=== PATIENT | female | born 1940 | race Caucasian/White ===

== ENCOUNTER 2020-01-04 11:20 | Emergency (ER) | payer BC, OTHER ==
[2020-01-04 11:37] VITALS: TEMP 98.4; BMI 24.5
--- NOTE | 2020-01-04 11:48 | PDOC ---
History of Present Illness - General Chief Complaint: Pain, Acute Stated Complaint: INDIGESTION Time Seen by Provider: 01/04/20 11:48 - History of Present Illness Initial Comments: 01/04/20 15:54 Chief complaint: Indigestion HPI: Patient complains of burning epigastric discomfort with a feeling of "indigestion" since this morning. She has had reflux symptoms, with belching and acid fluid regurgitating into the throat and causing pain in both sides of the neck. She has chronic pain in her left arm, which is unchanged, and there seems to be no new radiating pain to the shoulders or arms with her current symptoms. There is no diaphoresis, shortness of breath, lightheadedness or dizziness. Similar symptoms in the past attributed to GERD, maintained on Nexium, but symptoms today were worse Review of systems: As noted above. In addition, no URI symptoms, sore throat, cough, shortness of breath, hematemesis, melena, bloody stool, vomiting or diarrhea, urinary tract symptoms, vaginal bleeding or discharge. Past medical history: Atrial fibrillation many years ago controlled on digoxin and in remission. Previously on Eliquis but did not tolerate. Now is on only aspirin at bedtime.. GERD usually controlled on Nexium. Social history: No tobacco alcohol or nonprescription drugs. Fully active and without disability Family history: Reviewed and noncontributory including early coronary artery disease, metabolic disease including diabetes, and cancer Physical exam: Alert and oriented well-developed well-nourished mild distress due to "indigestion" but cheerful and cooperative Afebrile, vital signs normal except for significantly elevated blood pressure of 200/100. She is has had transient elevated blood pressure in the past but is maintained on no blood pressure medication. She checks her blood pressure at home and in the last few weeks it has been in the 160-170 range, which is higher than usual. PERRLA, fundi benign, ENT clear Neck supple without bruit mass or nodes Chest clear with full breath sounds bilaterally, no wheezes rales or rhonchi CV S1-S2 normal without murmur rub or gallop pulses full and symmetric no JVD or edema no bruits. Heart rate is irregularly irregular at 80 bpm. The patient is unaware of any palpitations Abdomen soft nontender without mass organomegaly. Bowel sounds normal. Nondistended no CVAT Extremities no CCE Skin clear, no rash, adequate turgor and wet mucous membranes Neurological intact Impression: Severe episode of GERD, rule out atypical symptoms of acute coronary syndrome. Plan: EKG and enzymes, CBC and chemistries, symptomatic treatment and observation. Further evaluation depending on results. 01/04/20 16:02 01/04/20 16:05 Past History - Past Medical History Allergies/Adverse Reactions: Allergies Allergy/AdvReac Type Severity Reaction Status Date / Time hyaluronate sodium Allergy Verified 01/04/20 11:22 [From Supartz] Home Medications: Ambulatory Orders Ascorbic Acid/Vitamin E/Biotin [Hair Skin Nails-Biotin Gummies] 1 each PO DAILY 09/01/14 Aspirin/Acetaminophen/Froy Carb [Excedrin Back & Body Caplet] 1 each PO HS Digoxin [Lanoxin] 125 mcg PO HS 09/01/14 Sertraline HCl 50 mg PO DAILY 01/04/20 Cardiac Disorders: Yes (AFIB) COPD: No Psychiatric Problems: Yes (DEPRESSION/ANXIETY) - Surgical History Abdominal Surgery: Yes Cholecystectomy: Yes - Psycho Social/Smoking Cessation Hx Smoking History: Never smoked Have you smoked in the past 12 months: No Hx Alcohol Use: No Drug/Substance Use Hx: No *Physical Exam - Vital Signs Last Vital Signs Temp Pulse Resp BP Pulse Ox 98.4 F 70 16 112/95 100 01/04/20 11:21 01/04/20 17:16 01/04/20 17:16 01/04/20 17:16 01/04/20 17:16 ED Treatment Course - LABORATORY CBC & Chemistry Diagram: 01/04/20 11:55 01/04/20 11:55 - ADDITIONAL ORDERS Additional order review: Laboratory Results 01/04/20 01/04/20 01/04/20 15:50 15:50 11:55 Sodium Potassium Chloride Carbon Dioxide Anion Gap BUN Creatinine Est GFR (CKD-EPI)AfAm Est GFR (CKD-EPI)NonAf Random Glucose Calcium Total Bilirubin AST ALT Alkaline Phosphatase Creatine Kinase 70 Troponin I < 0.03 Total Protein Albumin Lipase Digoxin 0.57 L 01/04/20 01/04/20 01/04/20 11:55 11:55 11:55 Sodium 139 Potassium 3.7 Chloride 108 H Carbon Dioxide 23 Anion Gap 8 BUN 17.0 Creatinine 0.6 Est GFR (CKD-EPI)AfAm 101.18 Est GFR (CKD-EPI)NonAf 87.30 Random Glucose 101 Calcium 8.6 Total Bilirubin 0.3 AST 20 ALT 21 Alkaline Phosphatase 59 Creatine Kinase 76 Troponin I < 0.03 Total Protein 6.6 Albumin 3.8 Lipase 137 Digoxin 01/04/20 11:55 RBC 5.58 H MCV 76.3 L MCHC 32.2 RDW 15.0 MPV 8.9 Neutrophils % 65.2 Lymphocytes % 24.2 Monocytes % 6.6 Eosinophils % 3.2 Basophils % 0.8 - RADIOLOGY Radiology Studies Ordered: Category Date Time Status CHEST X-RAY PORTABLE* [RAD] Stat Radiology 01/04/20 11:49 Completed - Medications Given in the ED: ED Medications Discontinued Medications Generic Name Dose Route Start Last Admin Trade Name Freq PRN Reason Stop Dose Admin Al Hydroxide/Mg Hydroxide 30 ml 01/04/20 12:43 01/04/20 12:49 Mylanta Oral Suspension - PO 01/04/20 12:44 30 ml ONCE ONE Administration Famotidine/Sodium Chloride 20 mg in 50 mls @ 100 mls/hr 01/04/20 11:49 11:59 Pepcid 20 Mg Premixed Ivpb - IVPB 01/04/20 12:18 100 mls/hr ONCE ONE Administration Medical Decision Making - Medical Decision Making 01/04/20 12:18 EKG shows normal sinus rhythm with occasional PACs. Normal axis and intervals no ST-T wave changes. Except for the occasional PACs, it is a normal EKG. 01/04/20 15:17 Initial EKG and labs negative. Repeat pending. Patient now asymptomatic. Pain has resolved. Clinically and hemodynamically stable. Blood pressure 178/96. 01/04/20 16:04 01/04/20 16:52 Repeat enzymes and EKG are unchanged. Blood pressure has improved. Discharged with follow-up 24 hours primary physician to monitor blood pressure and reevaluate. Return to ER if severe chest pain recurs. Continue Nexium. Avoid eating 3 to 4 hours before bed. Fully ambulatory and in no pain at discharge to follow-up as directed 01/04/20 17:27 Discharge - Discharge Information Problems reviewed: Yes Clinical Impression/Diagnosis: Chest pain due to GERD Condition: Stable - Admission No - Follow up/Referral - Patient Discharge Instructions Patient Printed Discharge Instructions: DI for Gastroesophageal Reflux Disease (GERD) Additional Instructions: Watch her diet closely. Avoid fatty foods, rich foods, and spicy foods. Eat smaller meals. Do not eat within 3 to 4 hours of going to sleep Continue taking your Nexium as directed. Return to hospital if severe pain returns. Otherwise follow-up with primary physician in 24 hours for blood pressure rechecked evaluated for the need for blood pressure medication. - Post Discharge Activity
[2020-01-04] MEDS ORDERED: FAMOTIDINE 20 MG/50 ML IVPB 20 MG/50 ML MG IVPB ONE ×2 (11:49→11:57)
[2020-01-04 12:07] LABS: BASO % 0.8 % (0-2.0); EOS % 3.2 % (0-4.5); HEMATOCRIT 42.6 % (32.4-45.2); HEMOGLOBIN 13.7 GM/dl (10.7-15.3); LYMPH % 24.2 % (8-40); MCH 24.6 pg (25.7-33.7); MCHC 32.2 g/dl (32.0-36.0); MEAN CELL VOLUME 76.3 fl (80-96); MEAN PLT VOLUME 8.9 fl (7.5-11.1); MONO % 6.6 % (3.8-10.2); NEUT % 65.2 % (42.8-82.8); PLATELET COUNT 230 K/MM3 (134-434); RBC 5.58 M/mm3 (3.60-5.2); WHITE BLOOD COUNT 6.1 K/mm3 (4.0-10.8)
[2020-01-04 12:15] LABS: ALBUMIN 3.8 g/dl (3.4-5.0); BILIRUBIN,TOTAL 0.3 mg/dl (0.2-1); CALCIUM 8.6 mg/dl (8.5-10); CREATININE 0.6 mg/dl (0.55-1.3); POTASSIUM 3.7 mmol/L (3.5-5.1); TOT PROT 6.6 g/dl (6.4-8.2)
[2020-01-04] MEDS ORDERED: MAG HYDROX/AL HYDROX/SIMETH 30 ML UNIT-DOSE CUP PO ONE (12:43)
[2020-01-04] MEDS ORDERED: MAG HYDROX/AL HYDROX/SIMETH 30 ML UNIT-DOSE CUP ONE (12:46)
[2020-01-04 17:17] VITALS: BP 112/95; PULSE 70
--- NOTE | 2020-01-05 14:29 | EKG ---
Test Reason : Blood Pressure : / mmHG Vent. Rate : 070 BPM Atrial Rate : 070 BPM P-R Int : 136 ms QRS Dur : 080 ms QT Int : 374 ms P-R-T Axes : 063 004 042 degrees QTc Int : 403 ms SINUS RHYTHM WITH PREMATURE ATRIAL COMPLEXES INFERIOR INFARCT , AGE UNDETERMINED ABNORMAL ECG WHEN COMPARED WITH ECG OF 04-JAN-2020 11:28, INFERIOR INFARCT IS NOW PRESENT Confirmed by ONELIA SINGH, JULISSA ([id number]) on 01/05/2020 2:28:45 PM Referred By: MD SANCHEZ Confirmed By:JULISSA ROUSSEAU MD
--- NOTE | 2020-01-05 14:29 | EKG ---
Test Reason : Blood Pressure : / mmHG Vent. Rate : 081 BPM Atrial Rate : 081 BPM P-R Int : 130 ms QRS Dur : 082 ms QT Int : 366 ms P-R-T Axes : 080 029 044 degrees QTc Int : 425 ms SINUS RHYTHM WITH PREMATURE SUPRAVENTRICULAR COMPLEXES OTHERWISE NORMAL ECG WHEN COMPARED WITH ECG OF 20-OCT-2016 13:31, PREMATURE SUPRAVENTRICULAR COMPLEXES ARE NOW PRESENT Confirmed by ONELIA SINGH, JULISSA ([id number]) on 01/05/2020 2:29:04 PM Referred By: GENEVIEVE SANCHEZ Confirmed By:JULISSA ROUSSEAU MD
== END 2020-01-04 17:33 | disposition home or self-care (01) ==
LOC: FER 11:20
PROC: 3E033GC Introduction of Other Therapeutic Substance into Peripheral Vein, Percutaneous Approach (ICD-10-PCS; principal; 2020-01-04)
DX: R07.89 Other chest pain (principal); K21.9 Gastro-esophageal reflux disease without esophagitis; Z88.8 Allergy status to other drugs, medicaments and biological substances; F41.8 Other specified anxiety disorders; I48.91 Unspecified atrial fibrillation
CPT/HCPCS: 36415; 71045-TC-FY; 80053; 80162; 82550; 83690; 84484; 85025; 93005; 99283-25

== ENCOUNTER 2021-04-30 10:09 | Emergency (ER) | payer OTHER ==
[2021-04-30 10:26] VITALS: BP 157/100; PULSE 87; TEMP 98.9; BMI 23.1
== END 2021-04-30 12:38 | disposition home or self-care (01) ==
LOC: FER 10:09
DX: M25.562 Pain in left knee (principal); M25.571 Pain in right ankle and joints of right foot
CPT/HCPCS: 73564-TC-LT-FY; 73610-TC-RT-FY; 99284-25

== ENCOUNTER 2021-05-20 15:08 | Emergency (ER) | payer OTHER ==
[2021-05-20 15:16] VITALS: BP 185/91; PULSE 75; TEMP 99.5; BMI 24.5
[2021-05-20] MEDS ORDERED: ACETAMINOPHEN 500 MG TABLET (FP) PO ONE (15:23)
[2021-05-20] MEDS ORDERED: ACETAMINOPHEN 325 MG TABLET (FP) ONE (15:50)
== END 2021-05-20 17:02 | disposition home or self-care (01) ==
LOC: FER 15:08
DX: M25.552 Pain in left hip (principal)
CPT/HCPCS: 73523-TC-FY; 99283-25

== ENCOUNTER 2021-11-30 16:00 | Emergency (ER) | payer OTHER ==
[2021-11-30 16:14] VITALS: BP 151/75; PULSE 75; TEMP 98.1; BMI 24.5
[2021-11-30] MEDS ORDERED: DIPHTH,PERTUSS(ACELL),TET 0.5 ML DISP.SYRIN IM ONE ×2 (16:38→16:44)
== END 2021-11-30 19:12 | disposition home or self-care (01) ==
LOC: FER 16:00
PROC: 3E0234Z Introduction of Serum, Toxoid and Vaccine into Muscle, Percutaneous Approach (ICD-10-PCS; principal; 2021-11-30)
DX: S02.2XXA Fracture of nasal bones, initial encounter for closed fracture (principal); W01.0XXA Fall on same level from slipping, tripping and stumbling without subsequent striking against object, initial encounter
CPT/HCPCS: 70450-TC; 70486-TC; 72125-TC; 90471; 90715; 99285-25

== ENCOUNTER 2022-02-24 17:30 | Emergency (ER) | payer OTHER ==
[2022-02-24 17:59] VITALS: BP 185/88; PULSE 95; TEMP 98.9; BMI 24.5
[2022-02-24] MEDS ORDERED: DIPHTH,PERTUSS(ACELL),TET 0.5 ML DISP.SYRIN IM ONE ×2 (18:14→18:19)
== END 2022-02-24 18:44 | disposition home or self-care (01) ==
LOC: FER 17:30
PROC: 3E0234Z Introduction of Serum, Toxoid and Vaccine into Muscle, Percutaneous Approach (ICD-10-PCS; principal; 2022-02-24)
DX: I10 Essential (primary) hypertension (principal); Z23 Encounter for immunization
CPT/HCPCS: 90471; 90715; 99284-25

== ENCOUNTER 2024-08-16 19:03 | Emergency (ER) | payer OTHER ==
[2024-08-16 19:09] VITALS: BP 189/78; PULSE 107; RESP 20; TEMP 99.4; BMI 22.7
[2024-08-16] MEDS ORDERED: ACETAMINOPHEN INJECTION 100 ML ONE (19:51)
[2024-08-16 20:16] LABS: BASO % 0.3 % (0-2.0); HEMATOCRIT 42.5 % (32.4-45.2); HEMOGLOBIN 13.6 GM/dL (10.7-15.3); LYMPH % 7.7 % (8-40); MCH 24.9 pg (25.7-33.7); MCHC 31.9 g/dl (32.0-36.0); MEAN CELL VOLUME 78.1 fl (80-96); MEAN PLT VOLUME 8.1 fl (7.5-11.1); PLATELET COUNT 217 10^3/uL (134-434); RBC 5.44 M/mm3 (3.60-5.2); RDW 15.3 % (11.6-15.6); WHITE BLOOD COUNT 8.7 K/mm3 (4.0-10.0)
[2024-08-16] MEDS ORDERED: ONDANSETRON 4 MG/2 ML VIAL ONE (20:16)
[2024-08-16 20:22] LABS: INR 1.03 (0.83-1.09); PROTHROMBIN TIME (PATIENT) 11.6 SEC (9.7-13.0)
[2024-08-16 20:36] LABS: POTASSIUM 4.6 mmol/L (3.5-5.1)
[2024-08-16 20:39] LABS: ALBUMIN 3.9 g/dl (3.4-5.0); BLOOD UREA NITROGEN 25.3 mg/dL (7-18); CALCIUM 9.4 mg/dL (8.5-10.1); MAGNESIUM 2.4 mg/dL (1.8-2.4)
[2024-08-16 20:42] LABS: CREATININE 0.8 mg/dL (0.55-1.3)
[2024-08-16 20:44] LABS: BILIRUBIN,TOTAL 0.3 mg/dL (0.2-1)
[2024-08-16] MEDS: ONDANSETRON 4 MG/2 ML VIAL IVPUSH ONE (21:10)
[2024-08-16] MEDS: ACETAMINOPHEN 1000 MG/100 ML BAG IVPB ONE (21:10)
[2024-08-16 21:33] LABS: HIV INTERPRETATION NEGATIVE (NEGATIVE)
[2024-08-16] MEDS: SODIUM CHLORIDE 0.9% 500 ML INFUS.BAG IV ONE (22:02)
== END 2024-08-16 22:28 | disposition home or self-care (01) ==
LOC: JER 19:03
PROC: 3E033NZ Introduction of Analgesics, Hypnotics, Sedatives into Peripheral Vein, Percutaneous Approach (ICD-10-PCS; principal; 2024-08-16)
PROC: 3E033GC Introduction of Other Therapeutic Substance into Peripheral Vein, Percutaneous Approach (ICD-10-PCS; 2024-08-16)
DX: U07.1 COVID-19 (principal); M79.10 Myalgia, unspecified site; R51.9 Headache, unspecified; R53.1 Weakness
CPT/HCPCS: 0241U-QW; 36415; 80053; 82550; 83735; 84484; 85025; 85610; 86803; 86850; 86900; 86901; 87040; 87389; 93005; 93010; 96374; 96375; 99284-25; J0131

== ENCOUNTER 2024-08-19 18:20 | Inpatient (IN) | payer OTHER ==
[2024-08-19 21:20] LABS: BASO % 0.6 % (0-2.0); EOS % 0.6 % (0-4.5); HEMATOCRIT 42.4 % (32.4-45.2); HEMOGLOBIN 13.8 GM/dL (10.7-15.3); LYMPH % 17.3 % (8-40); MCH 24.9 pg (25.7-33.7); MCHC 32.6 g/dl (32.0-36.0); MEAN CELL VOLUME 76.3 fl (80-96); MEAN PLT VOLUME 8.4 fl (7.5-11.1); NEUT % 72.5 % (42.8-82.8); PLATELET COUNT 198 10^3/uL (134-434); RBC 5.55 M/mm3 (3.60-5.2); RDW 14.9 % (11.6-15.6); WHITE BLOOD COUNT 5.2 K/mm3 (4.0-10.0)
[2024-08-19] MEDS ORDERED: guaiFENesin/D-METHORPHAN HB 10 ML UNIT-DOSE CUPS ONE (21:25)
[2024-08-19] MEDS ORDERED: ACETAMINOPHEN INJECTION 100 ML ONE (21:25)
[2024-08-19] MEDS ORDERED: AZITHROMYCIN IVPB 500 MG/250 ML BAG IVPB ONE (21:26)
[2024-08-19] MEDS ORDERED: CEFTRIAXONE 1 GM/50 ML BAG ONE (21:26)
[2024-08-19 21:45] LABS: POTASSIUM 4.6 mmol/L (3.5-5.1)
[2024-08-19 21:47] LABS: ALBUMIN 3.6 g/dl (3.4-5.0); CALCIUM 8.8 mg/dL (8.5-10.1)
[2024-08-19 21:48] LABS: BLOOD UREA NITROGEN 23.2 mg/dL (7-18); MAGNESIUM 2.4 mg/dL (1.8-2.4)
[2024-08-19 21:51] LABS: CREATININE 0.9 mg/dL (0.55-1.3)
[2024-08-19 21:52] LABS: BILIRUBIN,TOTAL 0.2 mg/dL (0.2-1); TOT PROT 6.9 g/dl (6.4-8.2)
[2024-08-19] MEDS: ACETAMINOPHEN 1000 MG/100 ML BAG IVPB ONE (21:55)
[2024-08-19] MEDS: SODIUM CHLORIDE 1,000 ML IV STA (21:56)
[2024-08-19] MEDS: guaiFENesin/D-METHORPHAN HB 10 ML UNIT-DOSE CUPS PO ONE (21:57)
[2024-08-19] MEDS: CEFTRIAXONE 1 GM in DEXTROSE 5%-WATER - 100 ML IVPB ONE (21:57)
[2024-08-19] MEDS: AZITHROMYCIN IVPB 500 MG in DEXTROSE 5%-WATER - 250 ML IVPB ONE (22:22)
[2024-08-19 23:39] LABS: EPI CELLS 4 /uL (0-25.1); HYALINE CASTS 1 /uL (0-3.1); PH,URINE 5.5 (5.0-8.0); URINE APPEARANCE CLEAR; URINE BACTERIA 190 /uL (0-1359); URINE BILIRUBIN NEGATIVE (NEGATIVE); URINE COLOR YELLOW; URINE GLUCOSE (UA) NEGATIVE (NEGATIVE); URINE KETONE NEGATIVE (NEGATIVE); URINE LEUK ESTERASE 3+ (NEGATIVE); URINE NITRITE NEGATIVE (NEGATIVE); URINE PROTEIN TRACE (NEGATIVE); URINE RBC 21 /uL (0-23.9); URINE UROBILINOGEN 0.2 mg/dL (0.2-1.0); URINE WBC 214 /uL (0-25.8)
[2024-08-20] MEDS: REMDESIVIR 200 MG in SODIUM CHLORIDE 250 ML IVPB ONE (05:48)
[2024-08-20] MEDS ORDERED: guaiFENesin/D-METHORPHAN HB 10 ML UNIT-DOSE CUPS ONE (06:36)
[2024-08-20] MEDS ORDERED: ACETAMINOPHEN 325 MG TABLET (FP) ONE (06:36)
[2024-08-20] MEDS: guaiFENesin/D-METHORPHAN HB 10 ML UNIT-DOSE CUPS PO ONE (06:46)
[2024-08-20] MEDS: ACETAMINOPHEN 325 MG TABLET (FP) PO PRN (06:46)
[2024-08-20] MEDS: ENOXAPARIN NA (PORCINE) 40 MG/0.4 ML DISP.SYRIN SQ SCH (10:43)
[2024-08-20] MEDS: amLODIPine BESYLATE 2.5 MG TABLET (FP) PO SCH (10:43)
[2024-08-20] MEDS: metoPROLOL SUCCINATE 25 MG TAB.SR.24H (FP) PO SCH (10:43)
[2024-08-20] MEDS: SERTRALINE HCL 50 MG TABLET (FP) PO SCH (10:43)
[2024-08-20 12:19] VITALS: BMI 23.6
[2024-08-20] MEDS ORDERED: AZITHROMYCIN IVPB 500 MG in DEXTROSE 5%-WATER - 250 ML IVPB SCH (18:00)
[2024-08-20] MEDS: CEFTRIAXONE 2 GM in DEXTROSE 5%-WATER 100 ML IVPB SCH (18:28)
[2024-08-20] MEDS ORDERED: CEFTRIAXONE 1 GM in DEXTROSE 5%-WATER - 50 ML IVPB SCH (21:00)
[2024-08-20] MEDS ORDERED: AZITHROMYCIN IVPB 500 MG/250 ML BAG IVPB SCH (21:00)
[2024-08-20] MEDS: DIGOXIN 0.125 MG TABLET PO SCH (22:27)
[2024-08-21 08:17] LABS: BASO % 0.3 % (0-2.0); EOS % 1.4 % (0-4.5); HEMATOCRIT 41.2 % (32.4-45.2); HEMOGLOBIN 13.6 GM/dL (10.7-15.3); LYMPH % 39.4 % (8-40); MCH 25.3 pg (25.7-33.7); MCHC 33.1 g/dl (32.0-36.0); MEAN CELL VOLUME 76.4 fl (80-96); MEAN PLT VOLUME 8.6 fl (7.5-11.1); MONO % 10.2 % (3.8-10.2); NEUT % 48.7 % (42.8-82.8); PLATELET COUNT 230 10^3/uL (134-434); RBC 5.39 M/mm3 (3.60-5.2); RDW 14.4 % (11.6-15.6); WHITE BLOOD COUNT 4.6 K/mm3 (4.0-10.0)
[2024-08-21 08:25] LABS: POTASSIUM 3.7 mmol/L (3.5-5.1)
[2024-08-21 08:36] LABS: ALBUMIN 3.5 g/dl (3.4-5.0); BLOOD UREA NITROGEN 14.3 mg/dL (7-18); CALCIUM 8.8 mg/dL (8.5-10.1); MAGNESIUM 2.2 mg/dL (1.8-2.4)
[2024-08-21 08:39] LABS: CREATININE 0.7 mg/dL (0.55-1.3); PHOSPHOROUS 3.4 mg/dL (2.5-4.9)
[2024-08-21 08:42] LABS: BILIRUBIN,TOTAL 0.3 mg/dL (0.2-1); TOT PROT 6.7 g/dl (6.4-8.2)
[2024-08-21] MEDS: AZITHROMYCIN IVPB 500 MG/250 ML BAG IVPB SCH (10:00)
[2024-08-21] MEDS: REMDESIVIR 100 MG in SODIUM CHLORIDE 250 ML IVPB SCH (10:00)
[2024-08-21] MEDS: ACETAMINOPHEN 1000 MG/100 ML BAG IVPB PRN (13:54)
[2024-08-21] MEDS: metoPROLOL SUCCINATE 25 MG TAB.SR.24H (FP) PO ONE (13:56)
[2024-08-21] MEDS: MELATONIN 5 MG TABLETS PO ONE (22:07)
[2024-08-22 08:15] LABS: HEMATOCRIT 38.9 % (32.4-45.2); HEMOGLOBIN 12.4 GM/dL (10.7-15.3); MCH 24.6 pg (25.7-33.7); MCHC 31.9 g/dl (32.0-36.0); MEAN CELL VOLUME 77.2 fl (80-96); MEAN PLT VOLUME 8.4 fl (7.5-11.1); PLATELET COUNT 194 10^3/uL (134-434); RBC 5.03 M/mm3 (3.60-5.2); RDW 14.8 % (11.6-15.6); WHITE BLOOD COUNT 3.7 K/mm3 (4.0-10.0)
[2024-08-22 08:37] LABS: POTASSIUM 3.9 mmol/L (3.5-5.1)
[2024-08-22 08:46] LABS: ALBUMIN 3.2 g/dl (3.4-5.0); BLOOD UREA NITROGEN 14.3 mg/dL (7-18); CALCIUM 8.8 mg/dL (8.5-10.1)
[2024-08-22 08:49] LABS: CREATININE 0.6 mg/dL (0.55-1.3)
[2024-08-22 08:52] LABS: BILIRUBIN,TOTAL 0.3 mg/dL (0.2-1); TOT PROT 6.1 g/dl (6.4-8.2)
[2024-08-22] MEDS: ARTIFICIAL TEARS OPHTHALMIC DROPS OU ONE (21:46)
[2024-08-22] MEDS: ACETAMINOPHEN 325 MG TABLET (FP) PO PRN (23:46)
[2024-08-23] MEDS: amLODIPine BESYLATE 5 MG TABLET (FP) PO SCH (10:49)
[2024-08-23] MEDS: LIDOCAINE 4% PATCH TP SCH (12:52)
[2024-08-23] MEDS: FLUTICASONE PROP 0.05% 16 GM NASAL SPRAY NS SCH (12:53)
[2024-08-23] MEDS: guaiFENesin 600 MG TABLET.ER (FP) PO SCH (13:37)
[2024-08-23] MEDS: amLODIPine BESYLATE 2.5 MG TABLET (FP) PO ONE (13:37)
[2024-08-23] MEDS: LIDOCAINE PATCH REMOVAL MC SCH (22:19)
[2024-08-24] MEDS: amLODIPine BESYLATE 5 MG TABLET (FP) PO SCH (10:56)
[2024-08-24] MEDS: CEFUROXIME AXETIL 500 MG TABLET PO SCH (10:56)
[2024-08-24 12:32] VITALS: RESP 18
[2024-08-24 12:40] VITALS: BP 151/68; PULSE 66; TEMP 98.2
== END 2024-08-24 17:22 | disposition home or self-care (01) | DRG 177 ==
LOC: JER 18:20 → JERBED 23:48 → J4S 08-20 09:11
PROVIDERS: ADMIT Internal Medicine; ATTEND Internal Medicine
PROC: XW033E5 Introduction of Remdesivir Anti-infective into Peripheral Vein, Percutaneous Approach, New Technology Group 5 (ICD-10-PCS; principal; 2024-08-20)
DX: U07.1 COVID-19 (principal); J12.82 Pneumonia due to coronavirus disease 2019; I48.91 Unspecified atrial fibrillation; F41.9 Anxiety disorder, unspecified; I10 Essential (primary) hypertension; B34.9 Viral infection, unspecified; M54.2 Cervicalgia; W19.XXXA Unspecified fall, initial encounter; Y93.89 Activity, other specified; Y92.000 Kitchen of unspecified non-institutional (private) residence as the place of occurrence of the external cause; Y99.8 Other external cause status
CPT/HCPCS: 0241U-QW; 36415; 70450-TC; 71045-TC-FY; 80053; 80162; 81003; 82550; 82553; 83735; 84100; 84484; 85025; 85027; 87086; 87899; 93005; 93010; 97116-GP; 97162-GP; 99285-25; J0131; J0248